=== PATIENT | male | born 1930 | race Asian ===

== ENCOUNTER → 2016-11-06 | Outpatient (CLI) | payer MEDICARE, OTHER ==
[~2016-11-06] MED LIST: ACET-66 PO; ATOR20TA86 PO; FEBU40T PO; GABA-531 PO; LACT30L PO; LOSA50TA37 PO; MULT-1259 PO; ONDA4TAB7 SL; TAMS0.4C32 PO; VITAD1000 PO
== END | disposition home or self-care (01) ==
LOC: RADPV 14:00
PROVIDERS: ATTEND Family Medicine
DX: I70.0 Atherosclerosis of aorta (principal); R91.8 Other nonspecific abnormal finding of lung field; L92.9 Granulomatous disorder of the skin and subcutaneous tissue, unspecified
CPT/HCPCS: 71020

== ENCOUNTER 2017-01-11 23:19 | Emergency (ER) | payer MEDICARE, OTHER ==
[~2017-01-11] VITALS: Ht 162.6 cm; Wt 70.5 kg
[~2017-01-11 23:19] MED LIST changes: -ATOR20TA86 PO; -FEBU40T PO; -GABA-531 PO; -LACT30L PO; -MULT-1259 PO; -ONDA4TAB7 SL; -TAMS0.4C32 PO; -VITAD1000 PO
[2017-01-11] MEDS ORDERED: MULT-1259 PO (23:46)
[2017-01-11] MEDS ORDERED: LOSA50TA37 PO (23:46)
[2017-01-11] MEDS ORDERED: VITAD1000 PO (23:46)
[2017-01-11] MEDS ORDERED: ATOR20TA86 PO (23:46)
[2017-01-11] MEDS ORDERED: ONDA4TAB7 SL (23:46)
[2017-01-11] MEDS ORDERED: FEBU40T PO (23:46)
[2017-01-11] MEDS ORDERED: GABA-531 PO (23:46)
[2017-01-11] MEDS ORDERED: TAMS0.4C32 PO (23:46)
[2017-01-11] MEDS ORDERED: LACT30L PO (23:46)
[2017-01-12] MEDS ORDERED: ACETAMINOPHEN 1000 MG/ISO-OSM 100 ML IV ONE
[2017-01-12] MEDS ORDERED: ACETAMINOPHEN 500 MG TABLET PO ONE
[2017-01-12] MEDS ORDERED: ONDANSETRON HCL 4 MG/2 ML VIAL IVP ONE
[2017-01-12] MEDS ORDERED: SODIUM CHLORIDE 0.9% 1,000 ML IV ONE
[2017-01-12 00:10] LABS: BASOPHILS % (AUTO) 0.2 % (0.0-2.0); EOSINOPHILS % (AUTO) 0.3 % (1.0-6.0); HEMATOCRIT 38.9 % (41-53); HEMOGLOBIN 12.6 g/dL (13.5-17.5); LYMPHOCYTES % (AUTO) 9.2 % (22.0-44.0); MEAN CORPUSCULAR HEMOGLOBIN 29.9 pg (26.0-34.0); MEAN CORPUSCULAR HGB CONC 32.4 G/dL (31.0-37.0); MEAN CORPUSCULAR VOLUME 92 fL (80-100); MONOCYTES # (AUTO) 0.7 K/uL (0.1-1.0); MONOCYTES % (AUTO) 6.8 % (2.0-9.0); NEUTROPHILS # (AUTO) 8.8 K/uL (1.8-7.7); NEUTROPHILS % (AUTO) 83.5 % (40.0-70.0); PLATELET COUNT (AUTO) 168 K/uL (150-450); RED BLOOD CELL COUNT(AUTO) 4.22 MIL/uL (4.50-5.90); RED CELL DISTRIBUTION WIDTH 13.9 % (11.5-14.5); WHITE BLOOD COUNT (AUTO) 10.6 K/uL (4.5-11.0)
[2017-01-12 00:22] LABS: CREATININE 1.3 mg/dL (0.60-1.30); POTASSIUM 4.1 mmol/L (3.5-5.1)
[2017-01-12 00:28] LABS: BILIRUBIN,TOTAL 0.8 mg/dL (0.1-1.0); TOTAL PROTEIN, SERUM 6.1 g/dL (6.4-8.2)
[2017-01-12] MEDS ORDERED: LEVOFLOXACIN 500 MG TABLET PO ONE (02:30)
[2017-01-12 02:35] VITALS: BP 134/77
== END 2017-01-12 02:35 | disposition home or self-care (01) ==
LOC: EMS 23:22
DX: J18.9 Pneumonia, unspecified organism (principal); I10 Essential (primary) hypertension; E78.00 Pure hypercholesterolemia, unspecified; R10.84 Generalized abdominal pain
CPT/HCPCS: 36415; 71010; 80053; 83690; 85025; 96365; 96375; 99285; J0131; J2405; J7030

== ENCOUNTER → 2018-02-18 | Emergency (ER) | payer MEDICARE, OTHER ==
[~2018-02-18] VITALS: Ht 162.6 cm; Wt 72.7 kg
[~2018-02-18] MED LIST changes: -ACET-66 PO; +ATOR20TA86 PO; +BARIUM SULFATE 0.1% SUSPENSION 450 ML BOTTLE PO ONE; +FEBU40T PO; +GABA-531 PO; +IOVERSOL 350 MG/ML 100 ML VIAL ONE; +LACT30L PO; +MORPHINE SULFATE 4 MG/ML SYRINGE IVP ONE; +MULT-1259 PO; +ONDA4TAB7 SL; +ONDANSETRON HCL 4 MG/2 ML VIAL IVP ONE; +SODIUM CHLORIDE 0.9% 0 ML ONE; +SODIUM CHLORIDE 0.9% 500 ML IV ONE; +SODIUM PHOS/SODIUM BIPHOS 133 ML ENEMA PR ONE; +TAMS0.4C32 PO; +VITAD1000 PO
[2018-02-18 08:55] LABS: BASOPHILS % (AUTO) 0.5 % (0.0-2.0); EOSINOPHILS % (AUTO) 1.7 % (1.0-6.0); HEMATOCRIT 43.6 % (41-53); HEMOGLOBIN 15.1 g/dL (13.5-17.5); LYMPHOCYTES # (AUTO) 1.9 K/uL (1.0-4.8); LYMPHOCYTES % (AUTO) 26.8 % (22.0-44.0); MEAN CORPUSCULAR HEMOGLOBIN 31.7 pg (26.0-34.0); MEAN CORPUSCULAR HGB CONC 34.5 G/dL (31.0-37.0); MEAN CORPUSCULAR VOLUME 92 fL (80-100); MONOCYTES # (AUTO) 0.7 K/uL (0.1-1.0); MONOCYTES % (AUTO) 9.3 % (2.0-9.0); NEUTROPHILS # (AUTO) 4.4 K/uL (1.8-7.7); NEUTROPHILS % (AUTO) 61.7 % (40.0-70.0); PLATELET COUNT (AUTO) 235 K/uL (150-450); RED BLOOD CELL COUNT(AUTO) 4.75 MIL/uL (4.50-5.90); RED CELL DISTRIBUTION WIDTH 13.3 % (11.5-14.5)
[2018-02-18 09:08] LABS: CALCIUM, TOTAL 8.3 mg/dL (8.8-10.5); CREATININE 1.82 mg/dL (0.60-1.30); POTASSIUM 4.6 mmol/L (3.5-5.1)
[2018-02-18 09:12] LABS: ALBUMIN 3.5 g/dL (3.4-5.0); BILIRUBIN,TOTAL 0.5 mg/dL (0.1-1.0); TOTAL PROTEIN, SERUM 6.9 g/dL (6.4-8.2)
[2018-02-18 12:50] VITALS: BP 147/104
[2018-02-18 12:51] LABS: APPEARANCE,URINE CLEAR (CLEAR); BILIRUBIN,URINE NEGATIVE (NEGATIVE); GLUCOSE, URINE (UA) NEGATIVE (NEGATIVE); OCCULT BLOOD,URINE SMALL (NEGATIVE); PROTEIN,URINE SEE CONFIRM (NEGATIVE)
[2018-02-18 12:52] LABS: KETONES,URINE NEGATIVE (NEGATIVE); LEUKOCYTE ESTERASE ,URINE NEGATIVE (NEGATIVE); NITRATE,URINE NEGATIVE (NEGATIVE); UROBILINOGEN,URINE 0.2 mg/dL (<=1.0)
[2018-02-18 13:01] LABS: BACTERIA,URINE None Seen /HPF (None Seen); RBC,URINE 0-2 /HPF (0-2); SULFOSALICYLIC ACID,URINE 2+ (Negative); WBC,URINE None Seen /HPF (0-5)
== END | disposition home or self-care (01) ==
LOC: EMS 08:05
DX: K59.00 Constipation, unspecified (principal); I48.92 Unspecified atrial flutter; E78.00 Pure hypercholesterolemia, unspecified; I10 Essential (primary) hypertension
CPT/HCPCS: 36415; 71045; 74018; 74176; 80053; 81001; 83690; 84484; 85025; 93005; 96374; 96375; 99285; J2270; J2405; J7040; J7050

== ENCOUNTER 2019-01-14 08:13 | Day surgery (SDC) | payer MEDICARE, OTHER ==
[~2019-01-14] VITALS: Ht 162.6 cm; Wt 72.7 kg
[~2019-01-14 08:13] MED LIST changes: +0.9% SODIUM CHLORIDE 10 ML SYRINGE IVP PRN; +ACET-66 PO; +ALBU8HFA IH; +APIX2.5T PO; +ASPI81 PO; -BARIUM SULFATE 0.1% SUSPENSION 450 ML BOTTLE PO ONE; +BUME1TAB17 PO; +DICLOFENAC SODIUM 0.1% 2.5 ML OPHTHALMIC SOLUTION OD ONE; +DICLOFENAC SODIUM 0.1% 2.5 ML OPHTHALMIC SOLUTION ONE; -FEBU40T PO; -GABA-531 PO; -IOVERSOL 350 MG/ML 100 ML VIAL ONE; +ISOS10TA16 PO; -LACT30L PO; -LOSA50TA37 PO; +METO25 PO; -MORPHINE SULFATE 4 MG/ML SYRINGE IVP ONE; +MOXIFLOXACIN HCL 0.5% 3 ML OPHTHALMIC SOLUTION OD ONE; +MOXIFLOXACIN HCL 0.5% 3 ML OPHTHALMIC SOLUTION ONE; +MULT1TAB70 PO; +NIFE30TA98 PO; -ONDA4TAB7 SL; -ONDANSETRON HCL 4 MG/2 ML VIAL IVP ONE; +PHENYLEPHRINE HCL 2.5% 2 ML OPHTHALMIC SOLUTION ONE; +POLY238P2 PO; +PROP15DR OU; -SODIUM CHLORIDE 0.9% 0 ML ONE; -SODIUM PHOS/SODIUM BIPHOS 133 ML ENEMA PR ONE; +TROPICAMIDE 1% 2 ML OPHTHALMIC SOLUTION ONE
[2019-01-14] MEDS: PHENYLEPHRINE HCL 2.5% 2 ML OPHTHALMIC SOLUTION OD SCH ×2 (09:11→09:16)
[2019-01-14] MEDS: TROPICAMIDE 1% 2 ML OPHTHALMIC SOLUTION OD SCH ×2 (09:11→09:16)
== END 2019-01-14 11:45 | disposition home or self-care (01) ==
LOC: SURGERY 08:13
PROVIDERS: ATTEND Specialist
DX: H25.11 Age-related nuclear cataract, right eye (principal); J44.9 Chronic obstructive pulmonary disease, unspecified; N18.5 Chronic kidney disease, stage 5; Z87.891 Personal history of nicotine dependence; Z98.42 Cataract extraction status, left eye; Z98.890 Other specified postprocedural states; Z53.8 Procedure and treatment not carried out for other reasons
CPT/HCPCS: 93005; J7040

== ENCOUNTER → 2019-05-13 | Outpatient (CLI) | payer MEDICARE, OTHER ==
[~2019-05-13] MED LIST changes: -0.9% SODIUM CHLORIDE 10 ML SYRINGE IVP PRN; -BUME1TAB17 PO; +BUME1TAB34 PO; -DICLOFENAC SODIUM 0.1% 2.5 ML OPHTHALMIC SOLUTION OD ONE; -DICLOFENAC SODIUM 0.1% 2.5 ML OPHTHALMIC SOLUTION ONE; -MOXIFLOXACIN HCL 0.5% 3 ML OPHTHALMIC SOLUTION OD ONE; -MOXIFLOXACIN HCL 0.5% 3 ML OPHTHALMIC SOLUTION ONE; -MULT1TAB70 PO; -PHENYLEPHRINE HCL 2.5% 2 ML OPHTHALMIC SOLUTION ONE; -SODIUM CHLORIDE 0.9% 500 ML IV ONE; -TROPICAMIDE 1% 2 ML OPHTHALMIC SOLUTION ONE
== END | disposition home or self-care (01) ==
LOC: RADPV 11:22
PROVIDERS: ATTEND Internal Medicine Pulmonary Disease
DX: J44.9 Chronic obstructive pulmonary disease, unspecified (principal); R05 Cough

== ENCOUNTER → 2019-05-22 | Outpatient (CLI) | payer MEDICARE, OTHER | END | disposition home or self-care (01) | LOC: RADMN 13:41 | PROVIDERS: ATTEND Internal Medicine Pulmonary Disease | DX: J43.2 Centrilobular emphysema (principal); J84.10 Pulmonary fibrosis, unspecified; R91.8 Other nonspecific abnormal finding of lung field; K80.20 Calculus of gallbladder without cholecystitis without obstruction; J01.00 Acute maxillary sinusitis, unspecified; I27.20 Pulmonary hypertension, unspecified; L72.0 Epidermal cyst | CPT/HCPCS: 70486; 71250 ==

== ENCOUNTER → 2019-08-05 | Outpatient (CLI) | payer MEDICARE, OTHER ==
[~2019-08-05] MED LIST changes: +CHOL100018 PO; +TAMS-13 PO; -TAMS0.4C32 PO; -VITAD1000 PO
[2019-08-14 09:42] LABS: ALBUMIN 3.2 g/dL (3.4-5.0); CALCIUM, TOTAL 8.2 mg/dL (8.8-10.5); CHOL/HDL RATIO 3.6 (4.2-7.3); CREATININE 1.94 mg/dL (0.60-1.30); PHOSPHORUS 4.3 mg/dL (2.5-4.9); POTASSIUM 4.4 mmol/L (3.5-5.1); TOTAL PROTEIN, SERUM 6.3 g/dL (6.4-8.2)
[2019-08-14 09:46] LABS: CREATININE,URINE 54.5 mg/dL (30.0-125.0)
[2019-08-14 09:51] LABS: CREATININE,SERUM FOR CRCL 1.94 mg/dL (0.60-1.30)
== END | disposition home or self-care (01) ==
LOC: LABPV 09:30
PROVIDERS: ATTEND Internal Medicine Nephrology
DX: I12.9 Hypertensive chronic kidney disease with stage 1 through stage 4 chronic kidney disease, or unspecified chronic kidney disease (principal); N18.9 Chronic kidney disease, unspecified; E78.5 Hyperlipidemia, unspecified
CPT/HCPCS: 81050; 82575; 83970; 84100; 84156; 84166; 84300

== ENCOUNTER → 2020-12-02 | Outpatient (CLI) | payer MEDICARE, OTHER ==
[~2020-12-02] VITALS: Ht 162.6 cm; Wt 74.0 kg
[~2020-12-02] MED LIST changes: +ACET-3385 PO; -ACET-66 PO; +APIX5TAB PO; +ASPI-1450 PO; -ASPI81 PO; +ESCI10 PO; +FERR325T22 PO; +LEVO500T89 PO; +PANT20TA18 PO; +PRED20TA3 PO; +PROP20TA7 PO; +ROFL500T PO; +SENN-309 PO
[2020-12-02 11:00] VITALS: BP 117/74
== END | disposition home or self-care (01) ==
LOC: SRCNTR 10:14
PROVIDERS: ATTEND Internal Medicine Clinical Cardiac Electrophysiology
DX: I10 Essential (primary) hypertension (principal); E78.00 Pure hypercholesterolemia, unspecified; I49.9 Cardiac arrhythmia, unspecified
CPT/HCPCS: Q3014

== ENCOUNTER → 2020-12-08 | Outpatient (CLI) | payer MEDICARE, OTHER ==
[2020-12-08 11:43] LABS: CALCIUM, TOTAL 8.4 mg/dL (8.8-10.5); CREATININE 1.77 mg/dL (0.60-1.30); POTASSIUM 3.6 mmol/L (3.5-5.1)
[2020-12-08 12:12] LABS: CREATININE,URINE RANDOM 228.5 mg/dL (30.0-125.0)
[2020-12-12 06:06] LABS: ALPHA-1 (IFE & PEP) 0.2 g/dL (0.0-0.4); GAMMA GLOBULINS (IFE & ELP) 0.7 g/dL (0.4-1.8); IGM (IMMUNOFIXATION) 46 mg/dL (15-143)
[2020-12-12 07:12] LABS: ALPHA-1 URINE 2.1 %; ALPHA-2 URINE 5.5 %
== END | disposition home or self-care (01) ==
LOC: LABPV 09:41
PROVIDERS: ATTEND Internal Medicine Nephrology
DX: N18.4 Chronic kidney disease, stage 4 (severe) (principal); R80.9 Proteinuria, unspecified
CPT/HCPCS: 82570; 82784; 83970; 84155; 84156; 84165; 84166; 86160; 86334; 86335